=== PATIENT | female | born 1960 | race Two or more races ===

== ENCOUNTER 2019-02-24 13:23 | Emergency (ER) | payer BC ==
[~2019-02-24] VITALS: Ht 162.6 cm; Wt 76.3 kg
[~2019-02-24 13:23] MED LIST: ACET500T71 PO; ALBU0.63 NEB; BACL-19 PO; CYCL-259 PO; EMPA1TAB7 PO; HYDR-3653 PO; IBUP-1222 PO; INSU100I32 INJ; INSU300I SQ; LISI-170 PO
--- NOTE | 2019-02-24 13:29 | NUR ---
SAROJ RN. NO ANSWER TO TRIAGE AT THIS TIME [id number]
--- NOTE | 2019-02-24 14:17 | NUR ---
PT STATES SHE WAS IN [facility] 3 WEEKS AGO AND BELIEVES THERE WAS AN ANIMAL IN HER COFFEE THAT SHE INADVERTENTLY SWALLOWED. N/V/D ABDOMINAL PAIN SINCE THEN. THE SYMPTOMS SUBSIDED BUT WORSENED SINCE SUNDAY. PT ONLY DRINKING FLUIDS AND NOT EATING
[2019-02-24] MEDS ORDERED: SODIUM CHLORIDE FLUSH 10ML SYR IVF ONE (14:30)
[2019-02-24] MEDS ORDERED: ONDANSETRON 2MG/ML, 2ML IVPush ONE (14:30)
[2019-02-24] MEDS ORDERED: MORPHINE SULFATE 4 MG/ML, 1ML IVPush PRN (14:30)
[2019-02-24] MEDS ORDERED: FAMOTIDINE 20 MG/2 ML IVP ONE (14:30)
[2019-02-24 15:05] LABS: BASOPHILS # (AUTO) 0.02 x10^3/uL (0-0.1); BASOPHILS % (AUTO) 0 % (0-1); EOSINOPHILS # (AUTO) 0.03 x10^3/uL (0-0.4); EOSINOPHILS % (AUTO) 0 % (1-7); LYMPHOCYTES # (AUTO) 1.68 x10^3/uL (1-3.4); LYMPHOCYTES % (AUTO) 25 % (22-44); MD NO; MEAN CORPUSCULAR HEMOGLOBIN 26.6 pg (27.0-34.8); MEAN CORPUSCULAR HGB CONC 32.9 g/dL (32.4-35.8); MEAN CORPUSCULAR VOLUME 80.9 fL (80-100); MONOCYTES # (AUTO) 0.76 x10^3/uL (0.2-0.8); MONOCYTES % (AUTO) 11 % (2-9); NEUTROPHILS # (AUTO) 4.22 x10^3/uL (1.8-6.8); NEUTROPHILS % (AUTO) 63 % (42-75); PLATELET COUNT 247 x10^3/uL (130-400); RED BLOOD COUNT 5.92 x10^6/uL (3.82-5.3); RED CELL DISTRIBUTION WIDTH 14.8 % (9.6-15.2)
[2019-02-24] MEDS ORDERED: FAMOTIDINE 20 MG/2 ML ONE (15:15)
[2019-02-24] MEDS ORDERED: MORPHINE SULFATE 4 MG/ML, 1ML ONE (15:15)
[2019-02-24] MEDS ORDERED: ONDANSETRON 2MG/ML, 2ML ONE (15:16)
[2019-02-24 15:17] LABS: ALANINE AMINOTRANSFERASE 39 U/L (12-78); ALBUMIN 3.6 g/dL (3.4-5.0); ANION GAP 6 mmol/L (5-15); CALCIUM 8.2 mg/dL (8.5-10.1); CHLORIDE 106 mmol/L (98-107); CREATININE 1.14 mg/dL (0.55-1.02)
[2019-02-24 15:19] LABS: ALKALINE PHOSPHATASE 162 U/L (45-117); BILIRUBIN,TOTAL 0.4 mg/dL (0.2-1.0); TOTAL PROTEIN 7.9 g/dL (6.4-8.2)
--- NOTE | 2019-02-24 15:33 | NUR ---
IV ESTABLISHED AND MEDICATED PER ORDERS
[2019-02-24] MEDS ORDERED: OMNIPAQUE 350 MG/ML, 100ML BOTTLE ONE (16:04)
--- NOTE | 2019-02-24 16:30 | NUR ---
[place] in [facility] - 02/24/19 at 1635 by XIANG PT AMB TO BR AND BACK TO ROOM WITH STEADY GAIT.
--- NOTE | 2019-02-24 16:35 | NUR ---
PT AMB TO BR AND BACK TO ROOM WITH STEADY GAIT. PT HAD BM HERE. PT IS NOT ABLE TO PROVIDE URINE SAMPLE AT THIS TIME. URINE CUP AT BEDSIDE NOW.
--- NOTE | 2019-02-24 16:53 | NUR ---
PT CONTINUES TO HAVE ABDOMINAL PAIN DESPITE BEING MEDICATED FOR SAME. URINE SAMPLE OBTAINED. PT HAS HAD DIARRHEA SINCE ARRIVAL BUT DID NOT GET SAMPLE. PT NOW HAS A HAT TO CATCH FUTURE BOUTS OF DIARRHEA
[2019-02-24 18:16] LABS: MICROSCOPIC INDICATED
[2019-02-24 18:17] LABS: CULTURE INDICATED? YES
--- NOTE | 2019-02-24 18:47 | NUR ---
AWAITING DISPO. FAMILY AT BEDSIDE
--- NOTE | 2019-02-24 18:59 | NUR ---
REPORT RECIEVED FROM KEVEN MCCLAIN.
[2019-02-24 19:27] VITALS: BP 150/89
--- NOTE | 2019-02-24 19:27 | NUR ---
Patient/Caregiver given discharge instructions and they have confirmed that they understand the instructions. Patient ambulatory with steady gait.
== END 2019-02-24 19:29 | disposition home or self-care (01) ==
LOC: ED 14:51
DX: N30.00 Acute cystitis without hematuria (principal); K52.9 Noninfective gastroenteritis and colitis, unspecified
CPT/HCPCS: 36415; 74177; 80053; 81001; 83690; 85025; 87077; 87086; 87186; 96374; 96375; 99284; J2270; J2405; J3490; Q9967